=== PATIENT | female | born 1965 | race Caucasian/White ===

== ENCOUNTER 2019-05-01 22:41 | Emergency (ER) | payer MEDICAID ==
[~2019-05-01] VITALS: Ht 165.1 cm; Wt 89.8 kg
--- NOTE | 2019-05-01 22:56 | NUR ---
PT [facility]RA FROM FRIEND'S HOUSE. PER RA, PT WAS WALKING AND HAD A SYNCOPE EPISODE, FELL BACKWARDS AND INTO FRIEND'S ARMS. ON ARRIVAL, PT OPENS EYES BUT WOULD NOT ANSWER ASSESSMENT QUESTIONS. VITAL SIGNS STABLE. NO ACUTE DISTRESS NOTED AT THIS TIME. PLACED ON CONTINUOUS BUSINESS INFORMATION CONSULTANT, WILL CONTINUE TO MONITOR
[2019-05-01] MEDS ORDERED: IV NS 0.9% 500 ML BAG IV ONE (23:00)
[2019-05-01 23:11] LABS: BASOPHILS # (AUTO) 0.1 /CMM (0.0-0.2); BASOPHILS % (AUTO) 0.8 % (0.0-2.0); EOSINOPHILS % (AUTO) 1.8 % (0.0-6.0); HEMATOCRIT 45 % (33-45); HEMOGLOBIN 14.9 g/dL (11.5-14.8); LYMPHOCYTES # (AUTO) 2.1 /CMM (0.8-4.8); LYMPHOCYTES % (AUTO) 21.5 % (20.0-44.0); MEAN CORPUSCULAR HGB CONC 33 g/dl (31.0-36.0); MEAN CORPUSCULAR VOLUME 88 fL (82-100); MONOCYTES # (AUTO) 0.7 /CMM (0.1-1.30); MONOCYTES % (AUTO) 7.1 % (2.0-12.0); NEUTROPHILS # (AUTO) 6.8 /CMM (1.8-8.9); NEUTROPHILS % (AUTO) 68.8 % (43.0-81.0); PLATELET COUNT (AUTO) 363 /CMM (150-450); WHITE BLOOD COUNT (AUTO) 9.9 K/uL (4.3-11.0)
--- NOTE | 2019-05-01 23:19 | NUR ---
BROUGHT BY RADIOLOGY FOR CT
[2019-05-01 23:22] LABS: CALCIUM, SERUM 9.2 mg/dL (8.5-10.1); CARBON DIOXIDE 27 mmol/L (21-32); CHLORIDE 103 mmol/L (98-107); GLUCOSE 140 mg/dL (74-106); POTASSIUM 3.2 mmol/L (3.5-5.1); SODIUM SERUM 141 mmol/L (136-145); UREA NITROGEN, BLOOD 14 mg/dL (7-18)
[2019-05-01 23:28] LABS: ALANINE AMINOTRANSFERASE 25 U/L (12-78); ALBUMIN 3.5 g/dL (3.4-5.0); ALKALINE PHOSPHATASE 94 U/L (46-116); ASPARTATE AMINOTRANSFERASE 22 U/L (15-37); BILIRUBIN,DIRECT 0.1 mg/dL (0.0-0.2); BILIRUBIN,TOTAL 0.5 mg/dL (0.2-1.0); TOTAL PROTEIN, SERUM 8.2 g/dL (6.4-8.2)
[2019-05-02] MEDS ORDERED: LEVETIRACETAM (500MG) 500 MG in IV NS 0.9% 100 ML IV SCH (00:30)
[2019-05-02] MEDS ORDERED: DEXAMETHASONE SOD PHOSPHATE 10 MG/ML VIAL IV ONE (00:30)
[2019-05-02 01:05] VITALS: BP 112/73
--- NOTE | 2019-05-02 01:34 | NUR ---
AMBULANCE 15 MIN ETA. PT ROOM AT [facility] 4417-2. NUMBER FOR REPORT [phone] [id number].
[2019-05-02] MEDS ORDERED: DEXAMETHASONE SOD PHOSPHATE 10 MG/ML VIAL ONE (01:35)
[2019-05-02] MEDS ORDERED: LEVETIRACETAM (500MG) 500 MG/5 ML VIAL IV ONE (01:36)
--- NOTE | 2019-05-02 01:53 | NUR ---
GAVE REPORT TO JONNIE POLLARD FOR S[facility]
--- NOTE | 2019-05-02 01:55 | NUR ---
GAVE REPORT TO HUMA Fonseca FOR TRANSPORTATION SURI
== END 2019-05-02 02:17 | disposition short-term general hospital (02) ==
LOC: ER 22:45
DX: D49.6 Neoplasm of unspecified behavior of brain (principal); R41.82 Altered mental status, unspecified; R94.31 Abnormal electrocardiogram [ECG] [EKG]
CPT/HCPCS: 36415; 70450; 71045; 80048; 80076; 80307; 82962; 84484; 85025; 85730; 93005; 96365; 96375; 99291; J1100; J7030; J7040; G0480; J1953